=== PATIENT | male | born 1980 ===

== ENCOUNTER 2024-02-11 10:45 | Inpatient (IN) | payer OTHER ==
[~2024-02-11] VITALS: Ht 160 cm; Wt 74.8 kg
[2024-02-11] MEDS ORDERED: ENVARSUS XR1 MG PO (13:30)
[2024-02-11] MEDS ORDERED: MYFORTIC360 MG PO (13:30)
[2024-02-11] MEDS ORDERED: NORVASC5 MG PO (13:31)
[2024-02-11] MEDS ORDERED: COZAAR100 MG PO (13:31)
[2024-02-11] MEDS ORDERED: TOPROL XL25 M1 PO (13:31)
[2024-02-11] MEDS ORDERED: MILLIPRED5 MG PO (13:31)
[2024-02-11] MEDS ORDERED: HUMALOG100 UNIT/2 (13:32)
[2024-02-11] MEDS ORDERED: LANTUS SOL100 UNIT/1 (13:32)
[2024-02-11] MEDS ORDERED: LASIX20 MG PO (13:32)
[2024-02-11 13:33] VITALS: BP 140/91
[2024-02-11] MEDS ORDERED: ADULT LOW DOSE81 M1 PO (13:33)
[2024-02-11] MEDS ORDERED: PREDNISONE5 M1 PO (14:19)
[2024-02-16 09:58] LABS: INR 1.17; PARTIAL THROMBOPLASTIN TIME 25.1 SECONDS (22.0-34.0); PROTHROMBIN TIME 12.6 SECONDS (9.0-11.5)
[2024-02-16] MEDS ORDERED: INSULIN LISPRO 1,000 UNIT/10 ML UNITS SUBCUTANEO PRN (14:15)
[2024-02-16] MEDS ORDERED: DEXTROSE 50 % IN WATER 0.5 G/ML DISP.SYRIN IV PRN ×2 (14:15→16:30)
[2024-02-16] MEDS ORDERED: METRONIDAZOLE/SODIUM CHLORIDE 500 MG/100 ML PIGGYBACK IV ONE (15:15)
[2024-02-16] MEDS ORDERED: CEFTRIAXONE SODIUM 2,000 MG VIAL IV ONE (15:15)
[2024-02-16] MEDS ORDERED: BUPIVACAINE HCL 30 ML VIAL IJ ONE (15:15)
[2024-02-16] MEDS ORDERED: LIDOCAINE HCL 1%/EPINEPHRINE 20ML VIAL IJ ONE (15:15)
[2024-02-16] MEDS ORDERED: MORPHINE SULFATE 4 MG/ML CARTRIDGE IV PRN (16:30)
[2024-02-16] MEDS ORDERED: ONDANSETRON HCL 2 MG/ML VIAL IV PRN (16:30)
[2024-02-16] MEDS ORDERED: OxyCODONE HCL 5 MG TABLET (ROXICODONE) PO PRN (16:30)
[2024-02-16] MEDS ORDERED: RINGERS SOLUTION,LACTATED 1,000 ML IV SCH (16:30)
[2024-02-16] MEDS ORDERED: POLYETHYLENE GLYCOL 3350 17 GM BLIST.PACK PO SCH (17:00)
[2024-02-16] MEDS ORDERED: GABAPENTIN 300 MG CAPSULE PO SCH (17:00)
[2024-02-16] MEDS ORDERED: HYOSCYAMINE SULFATE 0.125 MG TAB.SUBL SL SCH (17:00)
[2024-02-16] MEDS ORDERED: SIMETHICONE 125 MG CAPSULE PO SCH (17:00)
[2024-02-16] MEDS ORDERED: CELECOXIB 200 MG CAPSULE PO SCH (17:00)
[2024-02-16] MEDS ORDERED: METOCLOPRAMIDE HCL 5 MG/ML VIAL IV SCH (17:00)
[2024-02-16 17:57] LABS: HEMATOCRIT 42.4 % (39.0-48.0); HEMOGLOBIN 14.2 g/dL (13-16.00); MEAN CELL VOLUME 90.5 fL (80.0-100.00); MEAN CORPUSCULAR HEMOGLOBIN 30.3 pg (27.00-32.0); MEAN CORPUSCULAR HGB CONC 33.5 g/dl (32.0-36.0); PLATELET COUNT 229 K/uL (150-450); RED BLOOD COUNT 4.68 M/uL (4.00-6.00); RED CELL DISTRIBUTION WIDTH 13.9 % (11.5-14.5)
[2024-02-16] MEDS ORDERED: ACETAMINOPHEN 500 MG GEL..CAP PO SCH (20:00)
[2024-02-16] MEDS ORDERED: FAMOTIDINE/PF 20 MG/2 ML VIAL IV PUSH SCH (21:00)
[2024-02-16 22:04] VITALS: BP 154/71; O2SAT 98
[2024-02-16 22:23] VITALS: O2SAT 90
[2024-02-17] VITALS (8 sets, daily range): BP systolic 128–136; BP diastolic 65–70; O2SAT 83–100
[2024-02-17 07:54] LABS: HEMOGLOBIN 13.5 g/dL (13-16.00); MEAN CELL VOLUME 90.5 fL (80.0-100.00); MEAN CORPUSCULAR HEMOGLOBIN 29.9 pg (27.00-32.0); PLATELET COUNT 212 K/uL (150-450); RED BLOOD COUNT 4.53 M/uL (4.00-6.00); RED CELL DISTRIBUTION WIDTH 13.6 % (11.5-14.5)
[2024-02-17 08:27] LABS: ALBUMIN 2.9 gm/dL (3.4-5.0); CALCIUM 8.7 mg/dL (8.5-10.1); CREATININE SERUM 0.78 mg/dL (0.70-1.30); GFR 107.64; PHOSPHOROUS 2.2 mg/dL (2.5-4.9); POTASSIUM 4.54 mEq/L (3.5-5.1)
[2024-02-17 08:44] LABS: MAGNESIUM 1.3 mg/dL (1.8-2.4)
[2024-02-17] MEDS ORDERED: LACTOBACILLUS ACIDOPHILUS 1 CAP CAP PO SCH (09:00)
[2024-02-17] MEDS ORDERED: LACTULOSE 20 G/30 ML BLIST.PACK PO SCH (09:00)
[2024-02-17] MEDS ORDERED: MAGNESIUM SULFATE IN WATER 2 GM/50 ML PIGGYBAG IV NR (11:00)
[2024-02-17] MEDS ORDERED: hydrALAZINE HCL 20 MG VIAL IV PRN (16:15)
[2024-02-17] MEDS ORDERED: INSULIN LISPRO 1,000 UNIT/10 ML UNITS SUBCUTANEO SCH (17:00)
[2024-02-17] MEDS ORDERED: ENOXAPARIN SODIUM 40 MG/0.4 ML SYRINGE SUBCUTANEO SCH (17:00)
[2024-02-17] MEDS ORDERED: POTASSIUM PHOS,M-BASIC-D-BASIC 15 MM in 0.9 % SODIUM CHLORIDE 250 ML IV ONE (18:00)
[2024-02-17] MEDS ORDERED: INSULIN GLARGINE,HUM.REC.ANLOG 1,000 UNITS/10 ML UNITS SUBCUTANEO SCH (21:00)
[2024-02-18] VITALS (9 sets, daily range): BP systolic 118–139; BP diastolic 60–79; O2SAT 90–98
[2024-02-18] MEDS ORDERED: IRON FUM,PS/FOLIC/BCOMP,C NO.9 1 CAP CAPSULE PO SCH (09:00)
[2024-02-18] MEDS ORDERED: CALCITRIOL 0.25 MCG CAPSULE PO SCH (09:00)
[2024-02-18] MEDS ORDERED: ATORVASTATIN CALCIUM 40 MG TABLET PO SCH (09:00)
[2024-02-18] MEDS ORDERED: LOSARTAN POTASSIUM 100 MG TABLET PO SCH (09:00)
[2024-02-18] MEDS ORDERED: PREDNISONE 5 MG TABLET PO SCH (09:00)
[2024-02-18] MEDS ORDERED: METOPROLOL SUCCINATE 25 MG TAB.SR.24H PO SCH (09:00)
[2024-02-18] MEDS ORDERED: AMLODIPINE BESYLATE 5 MG TABLET PO SCH (09:00)
[2024-02-18] MEDS ORDERED: ENOXAPARIN SODIUM 40 MG/0.4 ML SYRINGE SUBCUTANEO SCH (09:00)
[2024-02-19 00:35] VITALS: BP 120/68; O2SAT 98
[2024-02-19 00:44] VITALS: O2SAT 94
[2024-02-19 05:38] VITALS: O2SAT 96
[2024-02-19 08:00] VITALS: BP 142/83; O2SAT 97
[2024-02-19 14:00] VITALS: O2SAT 98
[2024-02-19 16:33] VITALS: BP 137/78; O2SAT 97
== END 2024-02-19 17:38 | disposition home or self-care (01) | DRG 330 ==
LOC: O/R 02-16 07:24 → SURG 02-16 07:24 → SURH 02-16 10:45 → SURG 02-16 19:50 → SURH 02-17 18:01
PROVIDERS: ADMIT Colon & Rectal Surgery; ATTEND Colon & Rectal Surgery
PROC: 0FB24ZZ Excision of Left Lobe Liver, Percutaneous Endoscopic Approach (ICD-10-PCS; 2024-02-16)
PROC: 0FB14ZZ Excision of Right Lobe Liver, Percutaneous Endoscopic Approach (ICD-10-PCS; 2024-02-16)
PROC: 0DN84ZZ Release Small Intestine, Percutaneous Endoscopic Approach (ICD-10-PCS; 2024-02-16)
PROC: 4A12X4Z Monitoring of Cardiac Electrical Activity, External Approach (ICD-10-PCS; 2024-02-16)
PROC: 0DQ84ZZ Repair Small Intestine, Percutaneous Endoscopic Approach (ICD-10-PCS; principal; 2024-02-16 16:45)
DX: C18.3 Malignant neoplasm of hepatic flexure (principal); C78.7 Secondary malignant neoplasm of liver and intrahepatic bile duct; K91.72 Accidental puncture and laceration of a digestive system organ or structure during other procedure; K66.0 Peritoneal adhesions (postprocedural) (postinfection); E10.9 Type 1 diabetes mellitus without complications; Z85.038 Personal history of other malignant neoplasm of large intestine

== ENCOUNTER 2024-09-22 07:00 | Outpatient (CLI) | payer OTHER ==
[~2024-09-22] VITALS: Ht 160 cm; Wt 70.3 kg
[~2024-09-22 07:00] MED LIST: ADULT LOW DOSE81 M1 PO; COZAAR100 MG PO; ENVARSUS XR1 MG PO; HUMALOG100 UNIT/2; LANTUS SOL100 UNIT/1; LASIX20 MG PO; MILLIPRED5 MG PO; MYFORTIC360 MG PO; NORVASC5 MG PO; PREDNISONE5 M1 PO; TOPROL XL25 M1 PO
[2024-09-22 14:11] VITALS: BP 160/90
== END 2024-09-22 07:15 | disposition home or self-care (01) ==
LOC: EKG 07:00 → SURH 10-03 07:00 → EDSTATUS 10-03 11:30 → SURH 10-03 11:30
PROVIDERS: ATTEND Colon & Rectal Surgery
DX: C18.3 Malignant neoplasm of hepatic flexure (principal); Z85.038 Personal history of other malignant neoplasm of large intestine; K92.1 Melena; I10 Essential (primary) hypertension

== ENCOUNTER 2024-11-07 10:00 | Inpatient (IN) | payer OTHER ==
[~2024-11-07] VITALS: Ht 160 cm; Wt 72.6 kg
[2024-11-07] MEDS ORDERED: PEPCID AC20 MG (10:51)
[2024-11-07] MEDS ORDERED: SEPTRA (10:53)
[2024-11-07 11:03] VITALS: BP 190/100
[2024-11-14] MEDS ORDERED: BUPIVACAINE HCL/PF 0.25% 30ML VIAL InF ONE (14:00)
[2024-11-14] MEDS ORDERED: METRONIDAZOLE/SODIUM CHLORIDE 500 MG/100 ML PIGGYBACK IV ONE (14:00)
[2024-11-14] MEDS ORDERED: CEFTRIAXONE SODIUM 2,000 MG VIAL IV ONE (14:00)
[2024-11-14] MEDS ORDERED: LIDOCAINE HCL 1%/EPINEPHRINE 20ML VIAL IJ ONE (14:00)
[2024-11-14] MEDS ORDERED: hydrALAZINE HCL 20 MG VIAL IV PRN (14:30)
[2024-11-14] MEDS ORDERED: DEXTROSE 50 % IN WATER 0.5 G/ML VIAL IV PRN (15:15)
[2024-11-14] MEDS ORDERED: OxyCODONE HCL 5 MG TABLET (ROXICODONE) PO PRN (15:15)
[2024-11-14] MEDS ORDERED: RINGERS SOLUTION,LACTATED 1,000 ML IV SCH (15:15)
[2024-11-14] MEDS ORDERED: ONDANSETRON HCL 2 MG/ML VIAL IV PRN (15:15)
[2024-11-14] MEDS ORDERED: MORPHINE SULFATE 4 MG/ML CARTRIDGE IV PRN (15:15)
[2024-11-14] MEDS ORDERED: MORPHINE SULFATE 4 MG/ML VIAL IV ONE (16:15)
[2024-11-14] MEDS ORDERED: hydrALAZINE HCL 20 MG VIAL IV ONE (16:30)
[2024-11-14] MEDS ORDERED: HYOSCYAMINE SULFATE 0.125 MG TAB.SUBL SL SCH (17:00)
[2024-11-14] MEDS ORDERED: GABAPENTIN 300 MG CAPSULE PO SCH (17:00)
[2024-11-14] MEDS ORDERED: METOCLOPRAMIDE HCL 5 MG/ML VIAL IV SCH (17:00)
[2024-11-14] MEDS ORDERED: SIMETHICONE 125 MG CAPSULE PO SCH (17:00)
[2024-11-14] MEDS ORDERED: CELECOXIB 200 MG CAPSULE PO SCH (17:00)
[2024-11-14] MEDS ORDERED: POLYETHYLENE GLYCOL 3350 17 GM BLIST.PACK PO SCH (17:00)
[2024-11-14 18:14] LABS: BASO % 0.3 % (0.1-1.2); EOS # 0.03 (0.04-0.54); EOS % 0.1 % (0.7-7.0); LYMPH # 1.54 (1.18-3.74); LYMPH % 7.6 % (19.3-53.1); MEAN PLATELET VOLUME 10.50 fl (9.4-12.4); MONO # 1.32 (0.24-0.82); MONO % 6.5 % (4.7-12.5); NEUT # 17.33 (1.56-6.13); NEUT % 85.2 % (34.0-71.1); RED CELL DISTRIBUTION WIDTH 13.7 % (11.6-14.4)
[2024-11-14] MEDS ORDERED: ACETAMINOPHEN 500 MG GEL..CAP PO SCH (20:00)
[2024-11-14] MEDS ORDERED: FAMOTIDINE/PF 20 MG/2 ML VIAL IV PUSH SCH (21:00)
[2024-11-14] MEDS ORDERED: INSULIN LISPRO 1,000 UNIT/10 ML UNITS SUBCUTANEO PRN (23:15)
[2024-11-15 04:00] VITALS: BP 135/78; O2SAT 99
[2024-11-15 07:54] LABS: BASO % 0.2 % (0.1-1.2); EOS # 0.01 (0.04-0.54); EOS % 0.1 % (0.7-7.0); LYMPH # 1.16 (1.18-3.74); LYMPH % 6.9 % (19.3-53.1); MEAN PLATELET VOLUME 11.00 fl (9.4-12.4); MONO # 1.60 (0.24-0.82); MONO % 9.5 % (4.7-12.5); NEUT # 14.01 (1.56-6.13); NEUT % 82.9 % (34.0-71.1); RED CELL DISTRIBUTION WIDTH 13.8 % (11.6-14.4)
[2024-11-15 08:40] LABS: BUN CREA RATIO 13.0 (7.0-25.0); CREATININE SERUM 2.31 mg/dL (0.70-1.30); GFR 30.61; GLUCOSE FASTING 266.0 mg/dL (65-100); OSMOLALITY SERUM 295.0 MOSM/KG (275-295)
[2024-11-15] MEDS ORDERED: LOSARTAN POTASSIUM 100 MG TABLET PO SCH (09:00)
[2024-11-15] MEDS ORDERED: LACTULOSE 20 G/30 ML BLIST.PACK PO SCH (09:00)
[2024-11-15] MEDS ORDERED: METOPROLOL SUCCINATE 25 MG TAB.SR.24H PO SCH (09:00)
[2024-11-15] MEDS ORDERED: AMLODIPINE BESYLATE 5 MG TABLET PO SCH (09:00)
[2024-11-15] MEDS ORDERED: LACTOBACILLUS ACIDOPHILUS 1 CAP CAP PO SCH (09:00)
[2024-11-15 09:30] VITALS: BP 152/79; O2SAT 95
[2024-11-15 14:47] VITALS: O2SAT 94
[2024-11-15] MEDS ORDERED: ENOXAPARIN SODIUM 40 MG/0.4 ML SYRINGE SUBCUTANEO SCH (17:00)
[2024-11-15 17:13] VITALS: BP 160/77; O2SAT 94
[2024-11-15 18:08] VITALS: O2SAT 96
[2024-11-15 21:49] VITALS: O2SAT 92
[2024-11-16] VITALS (9 sets, daily range): BP systolic 138–160; BP diastolic 72–79; O2SAT 90–98
[2024-11-16 08:48] LABS: BASO % 0.2 % (0.1-1.2); EOS # 0.00 (0.04-0.54); EOS % 0.0 % (0.7-7.0); LYMPH # 0.85 (1.18-3.74); LYMPH % 5.6 % (19.3-53.1); MEAN PLATELET VOLUME 11.40 fl (9.4-12.4); MONO # 1.15 (0.24-0.82); MONO % 7.6 % (4.7-12.5); NEUT # 13.03 (1.56-6.13); NEUT % 86.1 % (34.0-71.1); RED CELL DISTRIBUTION WIDTH 14.2 % (11.6-14.4)
[2024-11-16] MEDS ORDERED: ENOXAPARIN SODIUM 40 MG/0.4 ML SYRINGE SUBCUTANEO SCH (09:00)
[2024-11-16 09:32] LABS: BUN CREA RATIO 13.0 (7.0-25.0); CREATININE SERUM 2.8 mg/dL (0.70-1.30); GFR 24.52; OSMOLALITY SERUM 294.0 MOSM/KG (275-295)
[2024-11-16 09:34] LABS: GLUCOSE FASTING 275.0 mg/dL (65-100)
[2024-11-16] MEDS ORDERED: INSULIN GLARGINE,HUM.REC.ANLOG 1,000 UNITS/10 ML UNITS SUBCUTANEO SCH (21:00)
[2024-11-17] VITALS (8 sets, daily range): BP systolic 148–157; BP diastolic 74–80; O2SAT 89–95
[2024-11-17] MEDS ORDERED: PATIENTS OWN MEDICATION (MEDICAMENTO EN PISO) PO SCH (17:00)
[2024-11-18] VITALS (7 sets, daily range): BP systolic 135–162; BP diastolic 71–84; O2SAT 94–98
[2024-11-18 07:47] LABS: ALT/SGPT 42.0 U/L (12-78); AST/SGOT 32.0 U/L (15-37); BILIRUBIN TOTAL 0.83 mg/dL (0.3-1.2); BUN CREA RATIO 15.0 (7.0-25.0); CREATININE SERUM 2.37 mg/dL (0.70-1.30); GFR 29.72; GLOBULINA 3.0 G/DL (2.4-3.5); OSMOLALITY SERUM 295.0 MOSM/KG (275-295)
[2024-11-18 07:51] LABS: BASO % 0.3 % (0.1-1.2); EOS # 0.23 (0.04-0.54); EOS % 2.5 % (0.7-7.0); LYMPH # 0.98 (1.18-3.74); LYMPH % 10.7 % (19.3-53.1); MEAN PLATELET VOLUME 11.00 fl (9.4-12.4); MONO # 0.64 (0.24-0.82); MONO % 7.0 % (4.7-12.5); NEUT # 7.26 (1.56-6.13); NEUT % 79.3 % (34.0-71.1); RED CELL DISTRIBUTION WIDTH 14.1 % (11.6-14.4)
[2024-11-18 07:56] LABS: BUN CREA RATIO 15.0 (7.0-25.0); CREATININE SERUM 2.33 mg/dL (0.70-1.30); GFR 30.31
[2024-11-18 08:18] LABS: GLUCOSE FASTING 204.0 mg/dL (65-100)
[2024-11-18 08:42] LABS: GLUCOSE FASTING 201.0 mg/dL (65-100); OSMOLALITY SERUM 295.0 MOSM/KG (275-295)
[2024-11-18] MEDS ORDERED: PREDNISONE 5 MG TABLET PO SCH (09:00)
[2024-11-18] MEDS ORDERED: PATIENTS OWN MEDICATION (MEDICAMENTO EN PISO) PO SCH (09:00)
[2024-11-18] MEDS ORDERED: POTASSIUM PHOS,M-BASIC-D-BASIC 15 MM in 0.9 % SODIUM CHLORIDE 250 ML IV NR (13:30)
[2024-11-18] MEDS ORDERED: INSULIN LISPRO 1,000 UNIT/10 ML UNITS SUBCUTANEO NR (15:15)
[2024-11-19] VITALS (7 sets, daily range): BP systolic 144–163; BP diastolic 75–91; O2SAT 90–97
== END 2024-11-19 18:44 | disposition home or self-care (01) | DRG 330 ==
LOC: SURH 11-14 10:00 → O/R 11-14 12:36 → SURH 11-14 20:30
PROVIDERS: Internal Medicine; ADMIT Colon & Rectal Surgery; ATTEND Colon & Rectal Surgery
PROC: 07BC0ZZ Excision of Pelvis Lymphatic, Open Approach (ICD-10-PCS; 2024-11-14)
PROC: 0DTL0ZZ Resection of Transverse Colon, Open Approach (ICD-10-PCS; principal; 2024-11-14 20:30)
DX: C18.3 Malignant neoplasm of hepatic flexure (principal); K92.1 Melena

== ENCOUNTER 2024-12-05 10:15 | Inpatient (IN) | payer OTHER ==
[~2024-12-05] VITALS: Ht 160 cm; Wt 70.3 kg
[~2024-12-05 10:15] MED LIST changes: +PEPCID AC20 MG; +SEPTRA
[2024-12-05] MEDS ORDERED: CEFTRIAXONE SODIUM 1,000 MG VIAL IV ONE (10:45)
[2024-12-05] MEDS ORDERED: ACETAMINOPHEN 325 MG TABLET PO PRN ×2 (10:45→18:45)
[2024-12-05 11:18] LABS: BASO % 0.3 % (0.1-1.2); EOS # 0.10 (0.04-0.54); EOS % 0.7 % (0.7-7.0); LYMPH # 1.20 (1.18-3.74); LYMPH % 8.0 % (19.3-53.1); MEAN PLATELET VOLUME 10.50 fl (9.4-12.4); MONO # 1.22 (0.24-0.82); MONO % 8.2 % (4.7-12.5); NEUT # 12.33 (1.56-6.13); NEUT % 82.4 % (34.0-71.1); RED CELL DISTRIBUTION WIDTH 14.9 % (11.6-14.4)
[2024-12-05 11:27] LABS: ALT/SGPT 81.0 U/L (12-78); AST/SGOT 37.0 U/L (15-37); BILIRUBIN TOTAL 2.39 mg/dL (0.3-1.2); BUN CREA RATIO 14.0 (7.0-25.0); CREATININE SERUM 1.4 mg/dL (0.70-1.30); GFR 54.56; GLOBULINA 4.1 G/DL (2.4-3.5); OSMOLALITY SERUM 287.0 MOSM/KG (275-295)
[2024-12-05 11:32] LABS: COVID-19 AG NEGATIVE (NEGATIVE)
[2024-12-05 11:47] LABS: INR 1.31
[2024-12-05 11:50] LABS: URINE APPEARANCE Clear; URINE BILIRRUBIN Negative (NEGATIVE); URINE BLOOD Negative; URINE COLOR Yellow; URINE KETONE Trace (NEGATIVE); URINE LEUKOCYTE Negative; URINE NITRATE Negative; URINE UROBILINOGEN 1.0 E.U./dl
[2024-12-05 11:51] LABS: URINE BACTERIA 8.3 uL (0.0-1933); URINE EPITHELIAL CELLS 4.9 uL (0.0-38.8); URINE WBC 3.9 uL (0.0-23.2)
[2024-12-05 11:51] LABS: GLUCOSE FASTING 219.0 mg/dL (65-100)
[2024-12-05 11:53] LABS: URINE GLUCOSE >=1000 MG/DL (NEGATIVE)
[2024-12-05 11:54] LABS: URINE CAST 0.14 uL (0.0-1.40); URINE PROTEIN 100 (NEGATIVE); URINE RBC 0.8 uL (0.0-20.8)
[2024-12-05] MEDS ORDERED: INSULIN REGULAR, HUMAN 1,000 UNIT/10 ML UNITS SUBCUTANEO ONE (13:45)
[2024-12-05] MEDS ORDERED: INSULIN LISPRO 1,000 UNIT/10 ML UNITS SUBCUTANEO PRN (18:30)
[2024-12-05] MEDS ORDERED: DEXTROSE 50 % IN WATER 0.5 G/ML DISP.SYRIN IV PRN (18:30)
[2024-12-05] MEDS ORDERED: VANCOMYCIN HCL 1,000 MG VIAL IV SCH (18:37)
[2024-12-05] MEDS ORDERED: 0.9 % SODIUM CHLORIDE 1,000 ML IV SCH (18:45)
[2024-12-05] MEDS ORDERED: ONDANSETRON HCL 4 MG in 0.9 % SODIUM CHLORIDE 50 ML IV PRN (18:45)
[2024-12-05] MEDS ORDERED: VANCOMYCIN HCL 1,000 MG VIAL ONE (19:07)
[2024-12-05 22:02] VITALS: BP 138/86
[2024-12-06 02:12] VITALS: BP 160/80
[2024-12-06 06:39] LABS: BASO % 0.5 % (0.1-1.2); EOS # 0.23 (0.04-0.54); EOS % 1.6 % (0.7-7.0); LYMPH # 1.00 (1.18-3.74); LYMPH % 6.8 % (19.3-53.1); MEAN PLATELET VOLUME 11.60 fl (9.4-12.4); MONO # 0.96 (0.24-0.82); MONO % 6.6 % (4.7-12.5); NEUT # 12.35 (1.56-6.13); NEUT % 84.2 % (34.0-71.1); RED CELL DISTRIBUTION WIDTH 14.9 % (11.6-14.4)
[2024-12-06 07:13] LABS: ALT/SGPT 57.0 U/L (12-78); AST/SGOT 19.0 U/L (15-37); BILIRUBIN TOTAL 1.77 mg/dL (0.3-1.2); BUN CREA RATIO 16.0 (7.0-25.0); CREATININE SERUM 1.17 mg/dL (0.70-1.30); GFR 67.11; GLOBULINA 3.3 G/DL (2.4-3.5); GLUCOSE FASTING 206.0 mg/dL (65-100); OSMOLALITY SERUM 288.0 MOSM/KG (275-295)
[2024-12-06] MEDS ORDERED: ONDANSETRON HCL 2 MG/ML VIAL ONE (09:02)
[2024-12-06 09:11] VITALS: BP 145/80; O2SAT 99
[2024-12-06] MEDS ORDERED: CEFTRIAXONE SODIUM 2,000 MG VIAL IV SCH (17:00)
[2024-12-06 17:38] VITALS: BP 162/84
[2024-12-06 17:41] VITALS: BP 162/84
[2024-12-06] MEDS ORDERED: PANTOPRAZOLE SODIUM 40 MG in 0.9 % SODIUM CHLORIDE 8 ML IV PUSH NR (18:00)
[2024-12-06] MEDS ORDERED: SUCRALFATE 1 G TABLET PO SCH (20:30)
[2024-12-07 03:01] VITALS: BP 154/81; O2SAT 99
[2024-12-07 07:50] LABS: BASO % 0.3 % (0.1-1.2); EOS # 0.01 (0.04-0.54); EOS % 0.1 % (0.7-7.0); LYMPH # 0.84 (1.18-3.74); LYMPH % 4.7 % (19.3-53.1); MEAN PLATELET VOLUME 10.70 fl (9.4-12.4); MONO # 1.19 (0.24-0.82); MONO % 6.6 % (4.7-12.5); NEUT # 15.79 (1.56-6.13); NEUT % 87.8 % (34.0-71.1); RED CELL DISTRIBUTION WIDTH 15.4 % (11.6-14.4)
[2024-12-07 08:32] LABS: ALT/SGPT 47.0 U/L (12-78); AST/SGOT 17.0 U/L (15-37); BILIRUBIN TOTAL 0.88 mg/dL (0.3-1.2); BUN CREA RATIO 13.0 (7.0-25.0); CREATININE SERUM 2.32 mg/dL (0.70-1.30); GFR 30.46; GLOBULINA 3.6 G/DL (2.4-3.5); LDH 198.0 U/L (87-241)
[2024-12-07 08:34] LABS: GLUCOSE FASTING 283.0 mg/dL (65-100); OSMOLALITY SERUM 300.0 MOSM/KG (275-295)
[2024-12-07] MEDS ORDERED: PANTOPRAZOLE SODIUM 40 MG in 0.9 % SODIUM CHLORIDE 8 ML IV PUSH SCH (09:00)
[2024-12-07] MEDS ORDERED: METHYLPREDNISOLONE SOD SUCC 40 MG VIAL IV SCH (09:00)
[2024-12-07] MEDS ORDERED: INSULIN NPH HUMAN ISOPHANE 1,000 UNITS/10 ML UNITS SUBCUTANEO SCH ×2 (09:00→17:00)
[2024-12-07 09:43] VITALS: BP 165/78; O2SAT 99
[2024-12-07] MEDS ORDERED: PREDNISONE 5 MG TABLET PO NR (13:15)
[2024-12-07] MEDS ORDERED: PATIENTS OWN MEDICATION (MEDICAMENTO EN PISO) PO NR (13:15)
[2024-12-07] MEDS ORDERED: PATIENTS OWN MEDICATION (MEDICAMENTO EN PISO) PO SCH (17:00)
[2024-12-07 17:51] VITALS: BP 144/78
[2024-12-07] MEDS ORDERED: AMLODIPINE BESYLATE 5 MG TABLET PO SCH (21:00)
[2024-12-07] MEDS ORDERED: METOPROLOL SUCCINATE 25 MG TAB.SR.24H PO SCH (21:00)
[2024-12-08 01:32] VITALS: BP 130/76; O2SAT 98
[2024-12-08 06:19] LABS: BASO % 0.1 % (0.1-1.2); EOS # 0.00 (0.04-0.54); EOS % 0.0 % (0.7-7.0); LYMPH # 0.80 (1.18-3.74); LYMPH % 5.1 % (19.3-53.1); MEAN PLATELET VOLUME 10.80 fl (9.4-12.4); MONO # 0.82 (0.24-0.82); MONO % 5.3 % (4.7-12.5); NEUT # 13.88 (1.56-6.13); NEUT % 89.1 % (34.0-71.1); RED CELL DISTRIBUTION WIDTH 15.2 % (11.6-14.4)
[2024-12-08 06:49] LABS: ALT/SGPT 40.0 U/L (12-78); AST/SGOT 11.0 U/L (15-37); BILIRUBIN TOTAL 0.52 mg/dL (0.3-1.2); BUN CREA RATIO 15.0 (7.0-25.0); CREATININE SERUM 2.28 mg/dL (0.70-1.30); GFR 31.08; GLOBULINA 3.5 G/DL (2.4-3.5); OSMOLALITY SERUM 295.0 MOSM/KG (275-295)
[2024-12-08 06:50] LABS: GLUCOSE FASTING 279.0 mg/dL (65-100)
[2024-12-08 08:53] VITALS: BP 157/76; O2SAT 99
[2024-12-08] MEDS ORDERED: PATIENTS OWN MEDICATION (MEDICAMENTO EN PISO) PO SCH (09:00)
[2024-12-08] MEDS ORDERED: ATORVASTATIN CALCIUM 40 MG TABLET PO SCH (09:00)
[2024-12-08] MEDS ORDERED: PREDNISONE 5 MG TABLET PO SCH (09:00)
[2024-12-08] MEDS ORDERED: INSULIN LISPRO 1,000 UNIT/10 ML UNITS SUBCUTANEO STA (09:51)
[2024-12-08] MEDS ORDERED: INSULIN GLARGINE,HUM.REC.ANLOG 1,000 UNITS/10 ML UNITS SUBCUTANEO STA (09:54)
[2024-12-08] MEDS ORDERED: INSULIN LISPRO 1,000 UNIT/10 ML UNITS SUBCUTANEO SCH (12:00)
[2024-12-08 17:56] VITALS: BP 153/84
[2024-12-09 02:48] VITALS: BP 162/89; O2SAT 99
[2024-12-09] MEDS ORDERED: hydrALAZINE HCL 20 MG VIAL IV PRN (06:45)
[2024-12-09 07:53] LABS: ALT/SGPT 35.0 U/L (12-78); AST/SGOT 19.0 U/L (15-37); BILIRUBIN TOTAL 0.65 mg/dL (0.3-1.2); BUN CREA RATIO 15.0 (7.0-25.0); CREATININE SERUM 1.88 mg/dL (0.70-1.30); GFR 38.82; GLOBULINA 3.5 G/DL (2.4-3.5)
[2024-12-09 08:00] LABS: OSMOLALITY SERUM 297.0 MOSM/KG (275-295)
[2024-12-09 08:01] LABS: GLUCOSE FASTING 379.0 mg/dL (65-100)
[2024-12-09] MEDS ORDERED: INSULIN GLARGINE,HUM.REC.ANLOG 1,000 UNITS/10 ML UNITS SUBCUTANEO SCH ×3 (09:00→21:00)
[2024-12-09 09:15] VITALS: BP 150/84; O2SAT 99
[2024-12-09 16:45] VITALS: BP 162/84; BP 178/88; O2SAT 98; O2SAT 99
[2024-12-10 02:05] VITALS: BP 157/81
[2024-12-10 08:13] LABS: ALT/SGPT 27.0 U/L (12-78); AST/SGOT 10.0 U/L (15-37); BILIRUBIN TOTAL 0.58 mg/dL (0.3-1.2); BUN CREA RATIO 14.0 (7.0-25.0); CREATININE SERUM 1.48 mg/dL (0.70-1.30); GFR 51.17; GLOBULINA 3.3 G/DL (2.4-3.5)
[2024-12-10 08:14] LABS: GLUCOSE FASTING 234.0 mg/dL (65-100); OSMOLALITY SERUM 288.0 MOSM/KG (275-295)
[2024-12-10 08:56] VITALS: BP 155/88; O2SAT 99
[2024-12-10] MEDS ORDERED: MAGNESIUM SULFATE IN WATER 2 GM/50 ML PIGGYBAG IV NR (14:04)
[2024-12-10] MEDS ORDERED: CITRIC ACID/SODIUM CITRATE 30 ML BLIST.PACK PO SCH (17:00)
[2024-12-10 18:26] VITALS: BP 154/94; O2SAT 96
[2024-12-10] MEDS ORDERED: INSULIN GLARGINE,HUM.REC.ANLOG 1,000 UNITS/10 ML UNITS SUBCUTANEO SCH (21:00)
[2024-12-11 02:31] VITALS: BP 159/90; O2SAT 98
[2024-12-11 08:19] LABS: BASO % 0.2 % (0.1-1.2); EOS # 0.12 (0.04-0.54); EOS % 1.4 % (0.7-7.0); LYMPH # 1.33 (1.18-3.74); LYMPH % 15.2 % (19.3-53.1); MEAN PLATELET VOLUME 10.30 fl (9.4-12.4); MONO # 0.54 (0.24-0.82); MONO % 6.2 % (4.7-12.5); NEUT # 6.70 (1.56-6.13); NEUT % 76.4 % (34.0-71.1); RED CELL DISTRIBUTION WIDTH 14.2 % (11.6-14.4)
[2024-12-11 08:35] VITALS: BP 160/100; O2SAT 97
[2024-12-11] MEDS ORDERED: INSULIN GLARGINE,HUM.REC.ANLOG 1,000 UNITS/10 ML UNITS SUBCUTANEO SCH ×2 (09:00→21:00)
[2024-12-11 19:21] VITALS: BP 157/90
[2024-12-12 01:45] VITALS: BP 147/82; O2SAT 98
[2024-12-12] MEDS ORDERED: SODIUM CHLORIDE 0.45 % 1,000 ML IV SCH (06:15)
[2024-12-12] MEDS ORDERED: DIPHENHYDRAMINE HCL 25 MG CAPSULE PO STA (08:18)
[2024-12-12 09:11] VITALS: BP 165/90; O2SAT 97
[2024-12-12 15:25] LABS: ALT/SGPT 21.0 U/L (12-78); AST/SGOT 16.0 U/L (15-37); BILIRUBIN TOTAL 0.67 mg/dL (0.3-1.2); BUN CREA RATIO 8.0 (7.0-25.0); CREATININE SERUM 1.39 mg/dL (0.70-1.30); GFR 55.01; GLOBULINA 3.5 G/DL (2.4-3.5); OSMOLALITY SERUM 284.0 MOSM/KG (275-295)
[2024-12-12 15:31] LABS: GLUCOSE FASTING 220.0 mg/dL (65-100)
[2024-12-12 17:03] VITALS: BP 155/90; O2SAT 98
[2024-12-12] MEDS ORDERED: DOXAZOSIN MESYLATE 2 MG TABLET PO SCH (21:00)
[2024-12-12] MEDS ORDERED: AMLODIPINE BESYLATE 10 MG TABLET PO SCH (21:00)
[2024-12-13 01:41] VITALS: BP 125/72; O2SAT 98
[2024-12-13 08:21] VITALS: BP 148/86; O2SAT 98
[2024-12-13 17:00] VITALS: BP 146/76; O2SAT 98
== END 2024-12-13 19:43 | disposition home or self-care (01) | DRG 602 ==
LOC: ER 10:15 → MEDJ 18:46 → MEDI 18:46 → MEDJ 12-06 13:38 → MEDI 12-06 13:45 → MEDJ 12-06 14:05
PROVIDERS: General Practice; Internal Medicine; Internal Medicine Endocrinology, Diabetes & Metabolism; Internal Medicine Infectious Disease; ADMIT Colon & Rectal Surgery; ATTEND Colon & Rectal Surgery
PROC: BW20YZZ Computerized Tomography (CT Scan) of Abdomen using Other Contrast (ICD-10-PCS; principal; 2024-12-13)
DX: L02.91 Cutaneous abscess, unspecified (principal); A41.9 Sepsis, unspecified organism; D84.9 Immunodeficiency, unspecified; N17.9 Acute kidney failure, unspecified; E27.40 Unspecified adrenocortical insufficiency; C18.9 Malignant neoplasm of colon, unspecified; R65.10 Systemic inflammatory response syndrome (SIRS) of non-infectious origin without acute organ dysfunction; Z79.4 Long term (current) use of insulin; E10.9 Type 1 diabetes mellitus without complications; Z79.52 Long term (current) use of systemic steroids; I10 Essential (primary) hypertension